=== PATIENT | male | born 1955 | race Caucasian/White ===

== ENCOUNTER 2024-09-20 14:52 | Inpatient (IN) | payer MEDICARE, OTHER, SELFPAY ==
[2024-09-20] VITALS (14 sets, daily range): BP systolic 127–185; BP diastolic 56–97; BMI 37.0; BMI 36.0
[2024-09-20 06:14] LABS: % Basophils 0.3 % (0-2); % Eosinophils 0.4 % (0-6); % Immature Granulocytes 0.5 % (0-0.5); % Lymphocytes 14.9 % (20.5-51.1); % Monocytes 3.7 % (1.7-9.3); % Neutrophils 80.2 % (42.2-75.2); Absolute Eosinophils 0.1 10^3/uL (0-0.7); Absolute Immature Granulocytes 0.1 10^3/uL (0-0.05); Absolute Monocytes 0.5 10^3/uL (0.1-0.6); Absolute Neutrophils 10.8 10^3/uL (1.4-6.5); Hemoglobin 13.8 g/dL (13.0-18.0); Mean Corp Hgb Conc. 33.7 g/dL (33.0-37.0); Mean Corpuscular Volume 86.1 fL (80.0-94.0); Mean Platelet Volume 10.4 fL (7.4-10.4); Nucleated Red Blood Cells % 0 % (-); Platelet Count 232 10^3/uL (130-400); Red Blood Cell Count 4.76 10^6/uL (4.70-6.10); Red Cell Dist. Width 12.8 % (11.5-14.5); White Blood Cell Count 13.5 10^3/uL (4.8-10.8)
--- NOTE | 2024-09-20 06:31 | ED.GENMED ---
History of Present Illness
General
Chief Complaint: Abdominal Pain
Source: patient and spouse
Exam Limitations: none
Time Seen by Provider: 09/20/24 06:04
Nursing documentation reviewed up to this point in time: agreed with
History of Present Illness
History of Present Illness:
69-year-old male with a past medical history of hypertension, BPH who presents to the emergency department for evaluation of left flank pain. Patient reports acute onset of symptoms in the middle of the night roughly 2 hours prior to arrival and
have been constant since that time although intensity waxing waning. He reports a sharp pain in the left flank does not radiate. No clear triggering or relieving factors noted. He did have associated sweatiness/clamminess, nausea and vomiting.
No recent diarrhea or constipation. Denies any fevers or chills. Denies any dysuria, hematuria, change in urinary frequency. He denies having had similar symptoms in the past.
Past History
Past History
ED Past Medical History: HTN
Social History
Tobacco: Non-smoker
Alcohol: Occasional
Family History
Family History: Hypertension
Review of Systems
Review of Systems
All Other Systems: ROS reviewed and negative except as documented in HPI and ROS
Constitutional: Denies fever or chills
Respiratory: Denies cough or trouble breathing
Cardiac: Denies chest pain
ABD/GI: Reports nausea and vomiting; Denies abdominal pain, diarrhea or constipated
: Reports flank pain; Denies dysuria, frequency or bleeding
Neurological: Denies dizzy or headache
Phy Exam
Physical Exam
Physical Exam:
General: Awake, alert, oriented x3; shifting in the bed unable to find position of comfort
Head: Normocephalic, atraumatic
Eyes: Conjunctiva normal, sclera anicteric
Throat: Airway intact, handling secretions
Neck: Trachea midline
Lungs: Clear to auscultation bilaterally, no wheezing, rales, rhonchi
Heart: Regular rate and rhythm, no murmurs, gallops, or rubs
Abd: Soft, non distended, nontender, no abdominal masses
Back: No CVA tenderness
Neuro: No gross deficits
Extremities: Warm and well-perfused
Scores
Heart Failure Risk
Heart Failure Risk Score: Not Applicable
Heart Score for Chest Pain Patients
STEMI patient?: Not applicable
Withdrawal Assessment of Alcohol
Withdrawal Assessment Completed?: Not applicable
Course
Orders/Labs/Results
Orders:
Orders
09/20/24 05:57
Complete Blood Count/With Diff Urgent
09/20/24 06:06
Comprehensive Metabolic Panel Urgent
Lipase Urgent
09/20/24 06:08
CT Abd/pel Without Iv Or Oral Urgent
Comment:
Reason For Exam: L flank pain
09/20/24 06:30
0.9% Sodium Chloride 1000 ml [Nss] 1,000 ml IV BOLUS
HYDROmorphone [Dilaudid] 0.5 mg IV ONCE PRN PRN
Ketorolac [Toradol] 15 mg IV NOW STA
09/20/24 06:47
Tamsulosin [Flomax] 0.4 mg PO NOW STA
09/20/24 09:42
Urinalysis Reflex To Culture Urgent
Date Specimen was Collected: 09/20/24
Time Specimen was Collected: 09:40
Urine Microscopic Reflex Cult Urgent
Urine Culture Urgent
CHANTEL Source: U
Specimen Description:
Date Specimen was Collected: 09/20/24
Time Specimen was Collected: 09:40
09/20/24 12:26
Ondansetron Injectable [Zofran] 4 mg .ROUTE .[facility]
09/20/24 12:31
Ondansetron Injectable [Zofran] 4 mg IV NOW STA
Abnormal Lab Results
09/20/24 09/20/24 09/20/24
05:57 06:06 09:42
WBC 13.5 H 10^3/uL
(4.8-10.8)
Abs Immat Gran (auto) 0.1 H 10^3/uL
(0-0.05)
Absolute Neuts (auto) 10.8 H 10^3/uL
(1.4-6.5)
Neutrophils % 80.2 H %
(42.2-75.2)
Lymphocytes % 14.9 L %
(20.5-51.1)
Glucose 199 H mg/dl
(70-99)
Urine Ketones 2+ A
(Negative)
Ur Occult Blood Reflex 4+ A
(Negative)
Leukocyte Esterase Rfl 2+ A
(Negative)
Urine RBC 30-40 A /HPF
(0-2)
Urine Bacteria (Reflex) Many A
(Negative)
Urine Glucose 2+ A
(Negative)
Urine Albumin (Reflex) 2+ A
(Neg - Trace)
09/20/24 05:57
09/20/24 06:06
Vital Signs
Initial and Last Documented VS:
Initial Vital Signs
Temp Pulse Resp BP Pulse Ox
36.6 C 52 16 140/73 100
09/20/24 05:03 09/20/24 05:03 09/20/24 05:03 09/20/24 05:03 09/20/24 05:03
Last Documented Vital Signs
Temp Pulse Resp BP Pulse Ox
36.6 C 48 16 143/63 100
09/20/24 05:03 09/20/24 10:15 09/20/24 10:15 09/20/24 13:00 09/20/24 05:03
MDM/Problems Addressed
Differential Diagnosis Includes:
Nephrolithiasis, UTI/pyelonephritis, diverticulitis, AAA considered less likely clinically
MDM/Problems Addressed:
69-year-old male presents for evaluation of acute onset left flank pain as described above. Vitals and exam as above. Send off labs including a CBC and a CMP, lipase. Check urinalysis. Check CT abdomen pelvis. Treat pain and provide fluids.
Reassess after the above.
Labs reviewed: CBC shows marginal leukocytosis to 13.5, CMP random glucose [address] abdomen pelvis shows 3 mm stone in the left mid ureter. We are awaiting urinalysis results. Clinically patient appears much more comfortable
after symptomatic treatment and fluids here. He is resting comfortably.
Urinalysis negative nitrites if does show blood no significant pyuria there were bacteria but many squamous cells suggesting that this is a contaminated sample without nitrites being positive and with no fever and a generally well-appearing patient
very low suspicion that patient has a septic stone. Stable for discharge�his pain is well-controlled he is resting comfortably has had stable vital signs. We did speak about follow-up plan and return precautions. I did inform him that his blood
sugar was high and he needs to discuss with his primary doctor. All questions answered.
Unfortunately prior to discharge patient started vomiting again and started having severe pain. Provided repeat dose of pain medication. Provide nausea medication. Continue to monitor.
Patient has required 3 doses of parenteral pain medications he still rates his pain at 5 out of 10. He does not feel comfortable going home at this point�will admit for continued management of symptoms from obstructive nephrolithiasis. Case
discussed with hospitalist.
Acute Exacerbation and/or Progression of Chronic Illness:
Acutely hypertensive likely pain related�treat pain but no indication for emergent antihypertensives for now
Acute Exacerbation and/or Progression of Chronic Illness: HTN
*Radiology
Radiology exam reviewed: preliminary read by ED provider (Left sided kidney stone) and radiology read reviewed
*Pulse Oximetry
Patient hypoxic: no
*Critical Care Note
Total Time (30-74mins, 75-104mins- exclusive of procedures): Not Applicable
Data Reviewed
Source: patient and spouse
Patient Management
Discussion with other providers: Hospitalist (Discussed with hospitalist)
Escalation/DeEscalation of care consider admission/obs:
Admission indicated
ED Attending Note
-
Portions of this chart may have been created with voice recognition software.� Occasional wrong word or��sound alike� substitutions may have occurred due to the inherent limitations of voice recognition software.
Discharge Plan
Departure
Patient Disposition: Home (Routine Discharge)
Date of Disposition: 09/20/24
Time of Disposition: 11:39
Patient with high blood pressure during this ER visit?: Yes
Discharge Problem:
Left nephrolithiasis, Hyperglycemia
Prescriptions:
No Action
oxycodone-acetaminophen 5 MG/325 MG tablet
1 tab PO Q4HPRN PRN (Reason: pain) Qty: 15 0RF
valacyclovir [Valtrex] 1,000 MG tablet
1,000 mg PO TID Qty: 21 0RF
oxycodone-acetaminophen 5 MG/325 MG tablet
1 tab PO Q6HPRN PRN (Reason: pain) Qty: 12 0RF
Referrals:
Tres Leigh MD [Active] - Call in 1-3 days for appt (Urologist)
Interventions
Interventions:
*Risk Screen - Suicide Last Done: 09/20/24 05:03
*General Assessment Last Done: 09/20/24 05:03
*Neglect/Abuse Screening Last Done: 09/20/24 05:03
ED- Fall Risk Assessment Last Done: 09/20/24 05:03
*ED COVID-19 Vaccine History Last Done: 09/20/24 05:03
KO-Qgcxnq-Pcjhrbfwsk Assessment Last Done: 09/20/24 07:06
Discharge Date and Time
Print Language: NIGERIAN
[2024-09-20 06:32] LABS: ALT (SGPT) 17 U/L (0-50); AST (SGOT) 19 U/L (17-59); Albumin 4.3 g/dl (3.5-5.0); Alkaline Phosphatase 66 U/L (38-126); Blood Urea Nitrogen 18 mg/dl (9-20); Calcium 8.9 mg/dl (8.4-10.2); Carbon Dioxide 30 mmol/L (22-30); Chloride 98 mmol/L (98-107); Estimated Creatinine Clearance 95 ml/min; Glucose 199 mg/dl (70-99); Lipase 122 U/L (23-300); Potassium 4.5 mmol/L (3.5-5.1); Sodium 138 mmol/L (135-145); Total Bilirubin 0.6 mg/dl (0.2-1.3); Total Protein 6.8 g/dl (6.3-8.2); eGFR > 60.00
[2024-09-20] MEDS: DILAUDID 0.5 MG IV ×3 (06:36→15:38)
[2024-09-20] MEDS: TORADOL 15 MG IV ×3 (06:36→22:23)
[2024-09-20] MEDS: NSS 1000 IV ×4 (06:37→22:53)
[2024-09-20] MEDS: FLOMAX 0.4 MG PO (07:02)
[2024-09-20 10:37] LABS: Urine Albumin 2+ (Neg - Trace); Urine Bilirubin Negative (Negative); Urine Character Slightly Cloudy (Clear); Urine Color Brown; Urine Glucose 2+ (Negative); Urine Ketone 2+ (Negative); Urine Leukocyte 2+ (Negative); Urine Nitrite Negative (Negative); Urine Specific Gravity 1.025 (<1.030); Urine Urobilinogen 1+ (Neg - 1+)
[2024-09-20 10:47] LABS: Urine Occult Blood 4+ (Negative)
[2024-09-20 11:18] LABS: Urine Bacteria Many (Negative); Urine Red Blood Cell 30-40 /HPF (0-2)
[2024-09-20 11:19] LABS: Urine Squamous Cell 16-20 /LPF (Few)
[2024-09-20] MEDS: ZOFRAN 4 MG IV (12:32)
--- NOTE | 2024-09-20 14:01 | HPS.HSE ---
Family Physician
-
Family Physician: Lonnie Garcia
Chief Complaint
-
left flank pain
History of Present Illness
69-year-old male with a past medical history of hypertension, BPH who presents to the emergency department for evaluation of left flank pain. patient woke up with chills and sweats associated with left flank pain. denied fever, PRETTY, dizzy or
syncope.denied chest pain, sob.denied abdominal pain,diarrhea. patient was nauseous and vomited twice. denied dysuria or hematuria.
CT with impression of MODERATE LEFT HYDRONEPHROSIS secondary to a 3.3 mm obstructing calculus in the left mid ureter. Patient received Dilaudid, Toradol, normal saline, Zofran, Flomax in ER. Admitted for further manage
Medical History
Past Medical History
Past Medical History: Reports Other
Additional Past Medical History:
Hyperlipidemia
Lumbar radiculopathy
Hypertension
Sleep apnea
BPH
Past Surgical History: Reports Other
Additional Past Surgical History:
Appendectomy
Social History
Tobacco: Non-smoker
Alcohol: None
Drug: Marijuana (oil)
Personal:
Living: With Family
Family History
Family History: Not pertinent
Allergies / Home Medications
Allergies reflects when Allergies were last updated in [facility].
Home Medications with original date entered in [facility]
Allergy/Medication List:
Allergies
Allergy/AdvReac Type Severity Reaction Status Date / Time
No Known Allergies Allergy Verified 09/20/24 05:10
Home Medications
oxycodone-acetaminophen 5 mg-325 mg tablet 1 tab PO Q4HPRN PRN pain #15 tabs 06/26/15
oxycodone-acetaminophen 5 mg-325 mg tablet 1 tab PO Q6HPRN PRN pain #12 tabs 01/03/19
valacyclovir 1 gram tablet (Valtrex) 1,000 mg PO TID #21 tabs 01/03/19
Review of Systems
-
Constitutional: Reports No Symptoms
EENT: Reports No Symptoms
Respiratory: Reports No Symptoms
Cardiac: Reports No Symptoms
Abdomen/GI: Reports Nausea and Vomiting
: Reports Flank Pain
Musculoskeletal: Reports No Symptoms
Skin: Reports No Symptoms
Neurological: Reports No Symptoms
Endocrine: Reports No Symptoms
Hematologic/Lymphatic: Reports No Symptoms
Psych: Reports No Symptoms
Physical Exam
Vital Signs
Vital Signs
Temp Pulse Resp BP Pulse Ox
97.8 F 48 16 143/63 100
09/20/24 05:03 09/20/24 10:15 09/20/24 10:15 09/20/24 13:00 09/20/24 05:03
Physical Exam
General: Well Developed, Well Nourished and No Apparent Distress
HEENT: NormoCephalic, Moist mucous membranes and Atraumatic
Respiratory: Clear
Cardiac: S1/S2 and Regular Rhythm; No Murmur or Rub
GI: Soft, Non Tender, Non Distended and Normal Bowel Sounds; No Organomegaly
Rectal: Deferred by Provider
Musculoskeletal: No Clubbing, No Cyanosis and No Edema
Skin: No Rash
Neuro: AO x 3 and Nonfocal/grossly intact
Psych: Calm
Laboratory Results
-
09/20/24 05:57
09/20/24 06:06
Laboratory Results
Total Bilirubin 0.6 mg/dl (0.2-1.3) 09/20/24 06:06
AST 19 U/L (17-59) 09/20/24 06:06
ALT 17 U/L (0-50) 09/20/24 06:06
Alkaline Phosphatase 66 U/L (38-126) 09/20/24 06:06
Lipase 122 U/L (23-300) 09/20/24 06:06
Data Reviewed
-
CT Scan: Report Reviewed by me
Lab Data: Labs Reviewed by me
Impression/Plan
-
# Obstructing kidney stone
-WBC 13.5
-CT abdomen pelvis with impression MODERATE LEFT HYDRONEPHROSIS secondary to a 3.3 mm obstructing calculus in the left mid ureter.
2. Small nonobstructing left lower pole intrarenal calculi.
3. Moderately enlarged prostate gland.
4. Mild hepatosplenomegaly.
5. Moderate polycystic liver disease.
6. Small hiatal hernia.
7. Severe multilevel lumbar discogenic degenerative disease.
-Will keep patient n.p.o.
-Oxy, Dilaudid as needed for pain
-Flomax continued
-Tylenol as needed for pain or fever
-Urology consulted
# BPH
-Finasteride continued
# Essential hypertension
-Lisinopril continued
# CODE STATUS
-Full code
# DVT prophylaxis
-SCDs
--- NOTE | 2024-09-20 14:36 | W.PN.UPDATE ---
Update Note
Progress Note Update
This is an addendum to H&P written by LOCKSTITCH HEMMER Mariella Waters
I saw and examined the patient.
The LOCKSTITCH HEMMER's note was reviewed and I agree with the note.
Comment:
Mr. Jin Ruiz is a 69 yo man with hx essential HTN, BPH presents to the ER with left flank pain that started last night.
Triage VS: T 36.6 C, P 52, RR 16, BP 140/73, SpO2 100%
On exam patient is laying on side, in moderate distress, conversant. lungs clear, abdomen benign
LABS: WBC 13.5, Hg 13.8, PLT 232, Na 138, K+ 4.5, CO2 30, Cr 1.0 Glucose 199, liver enzymes WNL
UA with 6-10 WBC, 30-[address] A/P
IMPRESSION:
1. MODERATE LEFT HYDRONEPHROSIS secondary to a 3.3 mm obstructing calculus in the left mid ureter.
2. Small nonobstructing left lower pole intrarenal calculi.
3. Moderately enlarged prostate gland.
4. Mild hepatosplenomegaly.
5. Moderate polycystic liver disease.
6. Small hiatal hernia.
7. Severe multilevel lumbar discogenic degenerative disease.
MAR: Dilaudid, Toradol, IVF, Zofran, Flomax
Obstructive Nephrolithiasis
-stone 3.3mm, unable to control pain despite interventions above
-admit to med/surg
-daily Flomax
-NS @ 125
-Urology consult
-strain urine
--- NOTE | 2024-09-20 14:54 | CONS.URO ---
Consultation
-
Date/Time Consultation Performed: 09/20/24 1605
Requesting Provider: hospitalists
Performing Provider: Jean Carlos
Reason for Consultation: left ureteral stone
Medical History
History of Present Illness
Patient presented to emergency department for evaluation of left flank pain during early AM.
'I vomited last night.'
CT has revealed a small left mid-ureteral stone.
Per physician mold closer helper, pain has been unmanageable, so he is to be admitted to Hospitalists' service.
first stone
'the pain is okay now'
Past Medical History
Past Medical History: HTN
Social History
Personal:
Family History
Family History: Reviewed & Not Pertinent
Allergies/Home Medications
Allergies
Allergy/AdvReac Type Severity Reaction Status Date / Time
No Known Allergies Allergy Verified 09/20/24 05:10
Home Medications
�Medication �Instructions �Recorded �Confirmed �Type
calcium polycarbophil 625 mg 3,750 mg PO DAILY 09/20/24 09/20/24 History
tablet (FiberCon)
finasteride 5 mg tablet 5 mg PO DAILY 09/20/24 09/20/24 History
lisinopril 10 mg tablet 10 mg PO DAILY 09/20/24 09/20/24 History
tamsulosin 0.4 mg capsule (Flomax) 0.4 mg PO DAILY 09/20/24 09/20/24 History
Physical Exam
Vital Signs
Vital Signs
Temp Pulse Resp BP Pulse Ox
97.8 F 46 18 155/56 100
09/20/24 05:03 09/20/24 12:00 09/20/24 12:00 09/20/24 14:00 09/20/24 05:03
Lab / Testing Results
Laboratory Results
09/20/24 05:57
09/20/24 06:06
Physical Exam
adult male on ED gurhooper
General: No Apparent Distress
GI: Soft and Non Tender
Genito-urinary: No Costovertebral Tend
Neuro: Awake and Alert
Psych: Calm and Intact Judgement
Assessment / Plan
-
Left Ureteral Stone: small, mid
managed pain
Plan:
trial of passage
will post for OR AM 09/21 in case pain escalates again to intolerable level -- OR consent provisionally signed
Data Reviewed
-
CT Scan: Image personally visualized and interpreted
Old Records: Reviewed
--- NOTE | 2024-09-20 17:10 | PTCARENOTE ---
Received pt from ED via stretcher. AAOX3. Pt ambulated to bed independently. Pt c/o pain throughout LLQ abd. Assessed and oriented to room. Pt verbalized understanding of call ibarra. Call ibarra within close reach. Will continue to monitor.
[2024-09-21] VITALS (10 sets, daily range): BP systolic 109–147; BP diastolic 57–85
[2024-09-21] MEDS: TORADOL 15 MG IV (04:35)
[2024-09-21 07:17] LABS: Hematocrit 36.7 % (39.0-52.0); Hemoglobin 12.3 g/dL (13.0-18.0); Mean Corp Hgb Conc. 33.5 g/dL (33.0-37.0); Mean Corpuscular Hgb 28.5 pg (27.0-31.0); Mean Corpuscular Volume 85.2 fL (80.0-94.0); Mean Platelet Volume 10.8 fL (7.4-10.4); Platelet Count 175 10^3/uL (130-400); Red Blood Cell Count 4.31 10^6/uL (4.70-6.10); Red Cell Dist. Width 12.9 % (11.5-14.5); White Blood Cell Count 13.1 10^3/uL (4.8-10.8)
[2024-09-21 07:45] LABS: Hepatitis C Antibody Negative (Negative)
--- NOTE | 2024-09-21 08:17 | W.PN.URO.CBU ---
Today's Communication / Plan
-
OR
Assessment / Plan
-
Patient has been undecided regarding surgery, but currently he agrees to surgical intervention accepting the potential risks which include, but are not limited to, injury to the penis, urethra, bladder, ureter, kidney; failure to remove stone;
bleeding; infection; DVT/PE, NE, CVA, . present.
Two discussions with patient then patient and encompassing > 30 minutes of total time as patient refused to be brought to OR holding area.
Diagnosis
-
Date of Service: September 21, 2024
-
Patient Diagnosis:
Left Ureteral Stone: small, mid
variably managed pain
Subjective
-
'as soon as the medication wears off the pain comes back'
Objective
-
Vital Signs
Temp Pulse Resp BP Pulse Ox
97.8 F 50 18 137/60 97
09/21/24 07:05 09/21/24 07:05 09/21/24 07:05 09/21/24 07:05 09/21/24 07:05
Intake and Output
09/20/24 09/21/24 09/22/24
06:59 06:59 06:59
Intake Total 480 / 480
Balance 480 / 480
Intake:
Oral fluids 480 / 480
Laboratory Results
09/21/24 06:13
09/20/24 06:06
Physical Exam
-
General - well developed, well nourished, no acute distress
[2024-09-21] MEDS: NSS 1000 IV (08:42)
--- NOTE | 2024-09-21 09:03 | W.SUR.PREOP ---
Pre-Operative Surgical Note
-
I have examined this patient prior to the performance of the scheduled procedure.
--- NOTE | 2024-09-21 09:22 | W.PN.HOSP.TC ---
Today's Communication/Plan
-
Discharge today
Assessment / Plan
Assessment / Plan
Physical exam:
General: Well Developed, Well Nourished and No Apparent Distress
HEENT: Normocephalic, Atraumatic and Moist Mucous Membranes
Respiratory: Clear to Auscultation; Negative Wheezes, Rales or Rhonchi
Cardiac: Regular Rhythm and S1/S2
GI: Soft, Nontender and Nondistended
Musculoskeletal: No Clubbing, No Cyanosis and No Edema
Neuro: Awake, Alert and Oriented
Psych: Calm
A/P:
# Obstructing kidney stone
-WBC 13.1 today
-CT abdomen pelvis with impression MODERATE LEFT HYDRONEPHROSIS secondary to a 3.3 mm obstructing calculus in the left mid ureter.
2. Small nonobstructing left lower pole intrarenal calculi.
3. Moderately enlarged prostate gland.
4. Mild hepatosplenomegaly.
5. Moderate polycystic liver disease.
6. Small hiatal hernia.
7. Severe multilevel lumbar discogenic degenerative disease.
-Tylenol for pain
-Urology consulted and took him to the OR today.
-Discussed with urology if antibiotics needed upon discharge and Dr. Evangelista said no. Cleared by urology for discharge.
# BPH
-Finasteride continued
# Essential hypertension
-Lisinopril continued
-Check BMP today adn stable
# CODE STATUS
-Full code
# DVT prophylaxis
-SCDs
Anticipated Discharge: Today
Subjective/Interval History
-
Date of Service: September 21, 2024
Patient had urological procedure today. No new complaints
Objective Data
-
Labs:
Laboratory Results
09/21/24
06:13
WBC 13.1 H
Hgb 12.3 L
Hct 36.7 L
Plt Count 175 D
Vital Signs:
Vital Signs
Temp Pulse Resp BP Pulse Ox
97.8 F 50 18 137/60 97
09/21/24 07:05 09/21/24 07:05 09/21/24 07:05 09/21/24 07:05 09/21/24 07:05
I&O
09/20/24 09/21/24 09/22/24
06:59 06:59 06:59
Intake Total 480 / 480
Balance 480 / 480
--- NOTE | 2024-09-21 10:15 | W.IMMPOSTOP ---
Surgical Immed Post Op Note
-
Primary Surgeon: Jean Carlos
Pre-op Diagnosis: 1. Left Ureteral Stone: ~ 4 mm, mid-ureteral, obstructing; 2. Left renal stones, non-obstructing
Post-op Diagnosis: 1. Left Ureteral Stone: ~ 4 mm, UVJ, obstructing; 2. Left renal stones, non-obstructing
Procedure Performed: left ureteroscopy, laser lithotripsy, basket extraction of stone fragments, stenting
Anesthesia Type: gen
Specimen / Cultures: fragments of left ureteral stone
Estimated Blood Loss: 1 ml
Complications: none
Operative Findings: Left UVJ stone; bloody urine release upon relief of obstruction; 4 mm yellow and brown stone
no ureteral stent placed
apprised
[2024-09-21] MEDS: Pyridium 200 MG PO (10:52)
[2024-09-21 11:19] LABS: Blood Urea Nitrogen 25 mg/dl (9-20); Calcium 8.7 mg/dl (8.4-10.2); Carbon Dioxide 23 mmol/L (22-30); Chloride 103 mmol/L (98-107); Estimated Creatinine Clearance 72 ml/min; Glucose 138 mg/dl (70-99); Potassium 4.7 mmol/L (3.5-5.1); Sodium 134 mmol/L (135-145); eGFR 59.47
--- NOTE | 2024-09-21 11:30 | PTCARENOTE ---
patient returned from OR via bed. arrived aaox3, no pain, lungs clear, no sob, apical regular, +pp, +1 edema b/l le, abdomen obese, +BSx4 quads, nontender, nondistended, has not urinated yet, IVF's infusing, vss, will continue to monitor.
[2024-09-21] MEDS: PROSCAR 5 MG PO (11:49)
[2024-09-21] MEDS: FLOMAX 0.4 MG PO (11:50)
[2024-09-21] MEDS: ZESTRIL 10 MG PO (11:50)
--- NOTE | 2024-09-21 13:14 | W.DCSUMMARY ---
Discharge Summary
Discharge Data
Date of Admission: 09/20/24
Date of Discharge: 09/21/24
-
Pending Results: No
Hospital Course
Patient 69 years old male came into the hospital with flank pain and nausea and vomiting and found to have left ureteral stone. Patient had some reactive leukocytosis. Urology consulted. He was taken to the OR and they did place as needed
lithotripsy and extraction of the stone. Patient is afebrile and hemodynamically stable. Urology cleared her for discharge today. He will be discharged in stable condition.
Discharge Plan
-
Patient Disposition: Home (Routine Discharge)
Discharge Diagnosis/Procedures: Left ureteral stone
Diet: Regular
Activity: As tolerated
Blood Work: CBC, BMP by either urology or PCP
Referrals:
Lonnie Garcia MD [Family Provider] - in less than 1 week
Don Evangelista MD [Active] - (call to schedule 30-minute appt during October to discuss remaining stones; have KUB x-ray performed during week prior to appt)
Prescriptions:
New
acetaminophen [Tylenol] 325 mg tablet
650 mg PO Q6H PRN (Reason: Pain) Qty: 14 0RF
Continued
lisinopril 10 mg Tablet
10 mg PO DAILY
tamsulosin [Flomax] 0.4 mg Capsule
0.4 mg PO DAILY
calcium polycarbophil [FiberCon] 625 mg Tablet
3,750 mg PO DAILY
finasteride 5 mg Tablet
5 mg PO DAILY
Discharge Orders:
Discharge Patient (As Directed); Ordered 09/21/24
Ordered By: Zack Jeffries
Discharge Date and Time
Discharge Date/Time: 09/21/24 16:28
Print Language: ROMANIAN
[2024-09-21] MEDS: TORADOL IV (13:19)
--- NOTE | 2024-09-21 14:00 | PTCARENOTE ---
patient voiding blood tinged urine, tolerated 100% of regular diet for lunch, assist x1 to br, gait steady, vss, for discharge to home today.
--- NOTE | 2024-09-21 14:57 | CM ---
Met with patient to obtain information for assessment. Patient's was at bedside. Patient stated that he lives in a one story home with one step to enter with his and daughter. He described himself as independent with all of his ADLs,
personal care, dressing and bathing. 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 He drives and can get to his appointments and do all of his own shopping. He has never had VN. He has no DME. He has not been to a SNF.
He has a prescription plan and uses, [facility] for all of his medications.
Patient's PCP is, Lonnie Avila.
Patient was provided with IMM. He signed it and it is now on chart.
Plan: Case management will continue to follow and assist with discharge planning. Home with his .
== END 2024-09-21 16:28 | disposition home or self-care (01) | DRG 660 ==
LOC: 3 WEST ACU 14:52
PROVIDERS: Registered Nurse; ADMITTING PHYSICIAN Student in an Organized Health Care Education/Training Program; ATTENDING PHYSICIAN Hospitalist; CONSULT PHYSICIAN Specialist; EMERGENCY PHYSICIAN Emergency Medicine; FAMILY PHYSICIAN Family Medicine
PROC: 0TC78ZZ Extirpation of Matter from Left Ureter, Via Natural or Artificial Opening Endoscopic (ICD-10-PCS; 2024-09-21)
PROC: 0T778DZ Dilation of Left Ureter with Intraluminal Device, Via Natural or Artificial Opening Endoscopic (ICD-10-PCS; 2024-09-21)
DX: N13.2 Hydronephrosis with renal and ureteral calculous obstruction (principal); Q44.6 Cystic disease of liver; I10 Essential (primary) hypertension; N40.0 Benign prostatic hyperplasia without lower urinary tract symptoms; R73.9 Hyperglycemia, unspecified; G47.30 Sleep apnea, unspecified; M54.16 Radiculopathy, lumbar region; E78.5 Hyperlipidemia, unspecified; R16.2 Hepatomegaly with splenomegaly, not elsewhere classified; K44.9 Diaphragmatic hernia without obstruction or gangrene; M51.369 Other intervertebral disc degeneration, lumbar region without mention of lumbar back pain or lower extremity pain; D72.829 Elevated white blood cell count, unspecified
CPT/HCPCS: 74018; 74176; 76000; 80048; 80053; 81003; 81015; 82365; 83690; 85025; 85027; 86803; 87086; 96361; 96374; 96375; 99285; C1894

== ENCOUNTER → 2024-10-09 11:26 | Outpatient (REF) | payer MEDICARE, OTHER, SELFPAY | LOC: RAD 11:26 | PROVIDERS: ATTENDING PHYSICIAN Specialist; FAMILY PHYSICIAN Family Medicine | DX: N20.0 Calculus of kidney (principal) | CPT/HCPCS: 74018 ==

== ENCOUNTER → 2024-10-23 09:52 | Outpatient (REF) | payer MEDICARE, OTHER, SELFPAY | LOC: SDSPAT 09:52 | PROVIDERS: ATTENDING PHYSICIAN Specialist; FAMILY PHYSICIAN Family Medicine | DX: N20.0 Calculus of kidney (principal) | CPT/HCPCS: 36415; 93005 ==

== ENCOUNTER 2024-10-31 06:12 | Day surgery (SDC) | payer MEDICARE, OTHER, SELFPAY ==
[2024-10-23 14:12] VITALS: BMI 36.2
[2024-10-31] VITALS (9 sets, daily range): BP systolic 120–157; BP diastolic 68–108; BMI 36.2
[2024-10-31] MEDS: NORMOSOL-R/PLASMALYTE-A 1000 IV (06:41)
[2024-10-31] MEDS: TYLENOL 1000 MG PO (07:05)
[2024-10-31] MEDS: Pyridium 200 MG PO (08:36)
[2024-10-31] MEDS: MOTRIN 600 MG PO (09:11)
== END 2024-10-31 09:45 | disposition home or self-care (01) ==
LOC: SDS 06:12
PROVIDERS: ATTENDING PHYSICIAN Specialist
DX: N20.2 Calculus of kidney with calculus of ureter (principal)
CPT/HCPCS: 52356; 74018; 76000; C2617